=== PATIENT | male | born 1995 | race Hispanic/Latino ===

== ENCOUNTER 2021-12-17 13:50 | Emergency (ER) | payer OTHER ==
[~2021-12-17] VITALS: Ht 167.6 cm; Wt 99.8 kg
[2021-12-17 13:54] VITALS: BP 135/83
[2021-12-17] MEDS ORDERED: OSEL75 PO (14:45)
== END 2021-12-17 15:07 | disposition home or self-care (01) ==
LOC: EDH 13:50
DX: J10.1 Influenza due to other identified influenza virus with other respiratory manifestations (principal); Z20.822 Contact with and (suspected) exposure to COVID-19
CPT/HCPCS: 99283; 87635; 87880; 87804 ×2; C9803

== ENCOUNTER 2022-07-06 13:42 | Emergency (ER) | payer OTHER ==
[~2022-07-06] VITALS: Ht 167.6 cm; Wt 99.8 kg
[~2022-07-06 13:42] MED LIST: OSEL75 PO
[2022-07-06 13:44] VITALS: BP 132/88
[2022-07-06] MEDS ORDERED: AZIT250T PO (16:30)
== END 2022-07-06 16:38 | disposition home or self-care (01) ==
LOC: EDH 13:42
DX: U07.1 COVID-19 (principal); J02.9 Acute pharyngitis, unspecified
CPT/HCPCS: 99283; 87635; 87880; C9803